=== PATIENT | female | born 1970 | race African-American/Black ===

== ENCOUNTER 2018-08-01 23:40 | Emergency (ER) | payer SELFPAY ==
[~2018-08-01 23:40] MED LIST: DEXTROSE (50%) 50ML SYRG IV ONE; EPINEPHrine HCL 1 MG/10 ML SYRG ONE; NALOXONE HCL 1MG/ML 2ML SYRINGE ONE; SODIUM BICARBONATE 8.4% INJ 50ML SYRINGE ONE
== END 2018-08-01 23:42 | disposition expired ==
LOC: EDBD 23:40 → ER 23:42
DX: I46.9 Cardiac arrest, cause unspecified (principal); I50.9 Heart failure, unspecified; F15.10 Other stimulant abuse, uncomplicated; Z88.0 Allergy status to penicillin
CPT/HCPCS: 92950; 99285; J0171; J2310; J7042